=== PATIENT | male | born 1950 | race Caucasian/White ===

== ENCOUNTER 2017-10-16 06:54 | Day surgery (SDC) ==
[2017-10-16] MEDS: TETRACAINE 0.5% OPTH SOL OP PRN ×2 (07:44→08:31)
[2017-10-16] MEDS: BETADINE OPTH PREP OP PRN ×2 (07:44→08:31)
[2017-10-16] MEDS: CYCLOGYL 2% OPTH OP PRN ×3 (07:45→07:55)
[2017-10-16] MEDS ORDERED: AK-DILATE 10% OPTH SOL OP PRN (07:47)
[2017-10-16] MEDS ORDERED: ZOFRAN 4 MG/2 ML IVP ONE (07:47)
[2017-10-16] MEDS ORDERED: BSS WITH EPINEPHRINE OP ONE (07:47)
[2017-10-16] MEDS ORDERED: NIRAVAM ODT (SURGERY) PO PRN (07:47)
[2017-10-16] MEDS ORDERED: BRIMONIDINE TARTRATE 0.2% OPTH SOL OP PRN (07:47)
[2017-10-16] MEDS ORDERED: LIDOCAINE 1% 20 ML MDV ID STA (07:47)
[2017-10-16] MEDS ORDERED: DEX-MOXI-KETOR OPTH INJ 1/0.5/0.4 MG/ML IO ONE (07:47)
[2017-10-16] MEDS ORDERED: LIDOCAINE 1%/PHENYLEPHRINE 1.5% BSS (SURGERY) INTRAOCULA ONE (07:47)
[2017-10-16] MEDS ORDERED: VERSED ONE (08:35)
[2017-10-16] MEDS ORDERED: SUBLIMAZE ONE (08:35)
[2017-10-18 16:48] VITALS: BP 128/67; TEMP 98.7
== END 2017-10-16 09:45 | disposition home or self-care (01) ==
LOC: SURG 06:54
PROVIDERS: ATTEND Ophthalmology
DX: H25.811 Combined forms of age-related cataract, right eye (principal)

== ENCOUNTER 2017-10-30 05:59 | Day surgery (SDC) ==
[2017-10-30] MEDS: TETRACAINE 0.5% UNIT-DOSE OP PRN ×2 (06:40→07:03)
[2017-10-30] MEDS: BETADINE OPTH PREP OP PRN ×2 (06:40→07:03)
[2017-10-30] MEDS: CYCLOGYL 2% OPTH OP PRN ×3 (06:40→06:50)
[2017-10-30] MEDS ORDERED: BRIMONIDINE TARTRATE 0.2% OPTH SOL OP PRN (06:48)
[2017-10-30] MEDS ORDERED: LIDOCAINE 1%/PHENYLEPHRINE 1.5% BSS (SURGERY) INTRAOCULA ONE (06:48)
[2017-10-30] MEDS ORDERED: DEX-MOXI-KETOR OPTH INJ 1/0.5/0.4 MG/ML IO ONE (06:48)
[2017-10-30] MEDS ORDERED: BSS WITH EPINEPHRINE OP ONE (06:48)
[2017-10-30] MEDS ORDERED: LIDOCAINE 1% 20 ML MDV ID STA (06:52)
[2017-10-30] MEDS ORDERED: VERSED ONE (07:25)
[2017-10-30] MEDS ORDERED: DIPRIVAN 20 ML VIAL IVP ONE (07:25)
[2017-10-30] MEDS ORDERED: SUBLIMAZE ONE (07:25)
[2017-11-01 12:14] VITALS: BP 128/59; TEMP 98.4
== END 2017-10-30 08:10 | disposition home or self-care (01) ==
LOC: SURG 05:59
PROVIDERS: ATTEND Ophthalmology
DX: H25.812 Combined forms of age-related cataract, left eye (principal)